=== PATIENT | female | born 1940 | race Caucasian/White ===

== ENCOUNTER 2016-10-28 22:57 | Inpatient (IN) | payer OTHER, MEDICARE ==
[~2016-10-28] VITALS: Ht 149.9 cm; Wt 59.9 kg
[~2016-10-28 22:57] MED LIST: ALDACTONE25 MG PO; AMARYL4 MG PO; ASPIRIN EC325 M1 PO; Aldactone PO; Aspirin PO; BUPROPION XL300 MG PO; Bactrim,Septra DS 80 PO; JANUVIA; LIDODERM 5% P1 PATCH TD; MICARDIS HCT PO; MICARDIS HCT1 TABLE2 PO; NORVASC10 MG PO; PRILOSEC OTC20 M1 PO; PRILOSEC20.6 MG PO; SIMVASTATIN40 M1 PO; Tylenol Arthritis Ex PO; Wellbutrin XL PO; Zocor PO; [UNRECOGNIZED DRUG - OTHER] TP
[2016-10-29 00:12] LABS: EOSINOPHIL (%) 0.6 % (0-5); EOSINOPHIL COUNT 0.1 K/uL (0-0.3); HEMATOCRIT 33.5 % (36.0-46.0); IMMATURE GRANULOCYTE (%) 0.4 % (0.0-0.7); IMMATURE GRANULOCYTE COUNT 0.1 K/uL; INSTRUMENT ABS NEUTROPHIL CT 13.2 K/uL; LYMPHOCYTE COUNT 1.5 K/uL (1.0-2.8); MCH 30.3 PG (29.0-34.0); MCHC 35.5 G/DL (30.0-36.0); MCV 85.2 FL (83-99); MEAN PLAT.VOLUME 9.2 uM^3 (9.5-12.4); MONOCYTE (%) 8.8 % (3-12); MONOCYTE COUNT 1.4 K/uL (0-0.8); NEUTROPHIL COUNT 13.2 K/uL (1.8-6.4); PLATELET COUNT 340 K/uL (156-360); RBC DIS.WIDTH-CV 11.9 % (11.8-14.6); RBC DIS.WIDTH-SD 36.6 % (39-53); RED BLOOD COUNT 3.93 M/uL (3.80-5.20); WHITE BLOOD COUNT 16.3 K/uL (4.1-10.2)
[2016-10-29 00:28] LABS: CHLORIDE 83 mEq/L (99-109); SODIUM 125 mEq/L (136-147)
[2016-10-29 00:30] LABS: GLUCOSE 60 mg/dL (70-99)
[2016-10-29 00:31] LABS: ANION GAP 14 MEQ/L (2-14)
[2016-10-29 00:33] LABS: TROP-I INTERPRETATION NEGATIVE; TROPONIN-I < 0.01 ng/mL (0.0-0.30)
[2016-10-29 00:34] LABS: GFR ESTIMATE (CALCULATED) 46 mL/min/
[2016-10-29 00:35] LABS: UREA NITROGEN (BUN) 24 mg/dL (9-23)
[2016-10-29 00:51] LABS: POTASSIUM 2.2 mEq/L (3.7-5.4)
[2016-10-29 01:05] LABS: ADD MIUA? NO; BILIRUBIN NEGATIVE; BLOOD NEGATIVE; COLOR YELLOW ((YELLOW)); GLUCOSE (STRIP) NEGATIVE; KETONES NEGATIVE; LEUKOCYTES NEGATIVE; NITRITE NEGATIVE; PROTEIN (STRIP) NEGATIVE; UCUL ADDED? NO; UROBILINOGEN 0.2 MG/DL (0.2-1.0)
[2016-10-29 03:05] VITALS: BP 144/65
[2016-10-29] MEDS ORDERED: HYZAAR 100-21 TABLET PD (03:13)
[2016-10-29] MEDS ORDERED: BUPROPION XL300 MG PD (03:17)
[2016-10-29] MEDS ORDERED: ATORVASTATIN CA20 MG PO (03:18)
[2016-10-29] MEDS ORDERED: FEROSUL325 MG PO (03:20)
[2016-10-29] MEDS ORDERED: MIRALAX17 GM PO (03:22)
[2016-10-29 05:59] LABS: HEMATOCRIT 30.6 % (36.0-46.0); MCH 30.5 PG (29.0-34.0); MCHC 35.3 G/DL (30.0-36.0); MCV 86.4 FL (83-99); PLATELET COUNT 312 K/uL (156-360); RBC DIS.WIDTH-SD 38.7 % (39-53); RED BLOOD COUNT 3.54 M/uL (3.80-5.20); WHITE BLOOD COUNT 12.6 K/uL (4.1-10.2)
[2016-10-29 06:23] LABS: ALKALINE PHOSPHATASE 67 IU/L (3-129); ANION GAP 7 MEQ/L (2-14); CHLORIDE 89 MEQ/L (99-109); GFR ESTIMATE (CALCULATED) 57 mL/min/; SAMPLE HEMOLYSIS CHECK 0; SAMPLE ICTERIC CHECK 0; SAMPLE LIPEMIA CHECK 0; SODIUM 125 MEQ/L (136-147); TOTAL BILIRUBIN 0.4 MG/DL (0.0-1.0); UREA NITROGEN (BUN) 21 mg/dL (9-23)
[2016-10-29 06:37] LABS: GLUCOSE 140 mg/dL (70-99); POTASSIUM 3.1 MEQ/L (3.7-5.4)
[2016-10-29 07:12] VITALS: BP 151/67
[2016-10-29 07:29] LABS: POINT-OF-CARE METER ID UU14188625
[2016-10-29 11:14] VITALS: BP 134/66
[2016-10-29 12:24] LABS: POINT-OF-CARE METER ID UU14188625
[2016-10-29 15:06] VITALS: BP 156/70
[2016-10-29 16:23] LABS: CHLORIDE 91 mEq/L (99-109); POTASSIUM 3.1 mEq/L (3.7-5.4); SODIUM 129 mEq/L (136-147)
[2016-10-29 16:24] LABS: GLUCOSE 138 mg/dL (70-99)
[2016-10-29 16:26] LABS: ANION GAP 14 MEQ/L (2-14)
[2016-10-29 16:28] LABS: GFR ESTIMATE (CALCULATED) 42 mL/min/
[2016-10-29 16:29] LABS: UREA NITROGEN (BUN) 21 mg/dL (9-23)
[2016-10-29 16:43] LABS: POINT-OF-CARE METER ID UU14188625
[2016-10-30 00:06] VITALS: BP 150/71
[2016-10-30 01:11] LABS: CHLORIDE 97 mEq/L (99-109)
[2016-10-30 01:12] LABS: SODIUM 129 mEq/L (136-147)
[2016-10-30 01:13] LABS: GLUCOSE 110 mg/dL (70-99)
[2016-10-30 01:15] LABS: ANION GAP 9 MEQ/L (2-14); POTASSIUM 4.7 mEq/L (3.7-5.4)
[2016-10-30 01:17] LABS: GFR ESTIMATE (CALCULATED) 51 mL/min/
[2016-10-30 01:18] LABS: UREA NITROGEN (BUN) 24 mg/dL (9-23)
[2016-10-30 03:37] VITALS: BP 157/67
[2016-10-30 06:15] LABS: BASOPHIL COUNT 0.1 K/uL (0-0.1); EOSINOPHIL (%) 1.2 % (0-5); EOSINOPHIL COUNT 0.2 K/uL (0-0.3); HEMATOCRIT 29.3 % (36.0-46.0); IMMATURE GRANULOCYTE (%) 0.4 % (0.0-0.7); IMMATURE GRANULOCYTE COUNT 0.1 K/uL; INSTRUMENT ABS NEUTROPHIL CT 10.4 K/uL; LYMPHOCYTE COUNT 2.1 K/uL (1.0-2.8); MCH 31.7 PG (29.0-34.0); MCHC 35.8 G/DL (30.0-36.0); MCV 88.5 FL (83-99); MEAN PLAT.VOLUME 9.2 uM^3 (9.5-12.4); MONOCYTE (%) 11.9 % (3-12); MONOCYTE COUNT 1.7 K/uL (0-0.8); NEUTROPHIL (%) 71.9 % (45-76); NEUTROPHIL COUNT 10.4 K/uL (1.8-6.4); PLATELET COUNT 301 K/uL (156-360); RBC DIS.WIDTH-CV 12.6 % (11.8-14.6); RBC DIS.WIDTH-SD 40.9 % (39-53); RED BLOOD COUNT 3.31 M/uL (3.80-5.20); WHITE BLOOD COUNT 14.4 K/uL (4.1-10.2)
[2016-10-30 07:10] LABS: ANION GAP 9 MEQ/L (2-14); CHLORIDE 96 MEQ/L (99-109); GFR ESTIMATE (CALCULATED) 57 mL/min/; GLUCOSE 102 mg/dL (70-99); MAGNESIUM 1.2 mg/dl (1.3-2.7); SAMPLE HEMOLYSIS CHECK 0; SAMPLE ICTERIC CHECK 0; SAMPLE LIPEMIA CHECK 0; SODIUM 131 MEQ/L (136-147); UREA NITROGEN (BUN) 20 mg/dL (9-23); URIC ACID 3.7 mg/dL (3.1-9.2)
[2016-10-30 07:15] LABS: POTASSIUM 3.6 MEQ/L (3.7-5.4)
[2016-10-30 08:14] VITALS: BP 158/71
[2016-10-30 11:39] VITALS: BP 142/57
[2016-10-30] MEDS ORDERED: COLACE100 MG PO (11:40)
== END 2016-10-30 13:48 | disposition home health service (06) | DRG 641 ==
LOC: EME 22:57 → EDOF 10-29 02:01 → 5SOUTH 10-29 02:01 → ENRESERV 10-29 02:03 → 5SOUTH 10-29 02:43 → ENPENDDIS 10-30 → 5SOUTH 10-30 13:48
PROVIDERS: Emergency Medicine; Internal Medicine; Internal Medicine Nephrology
DX: E87.1 Hypo-osmolality and hyponatremia (principal); T50.2X5A Adverse effect of carbonic-anhydrase inhibitors, benzothiadiazides and other diuretics, initial encounter; N17.9 Acute kidney failure, unspecified; E86.0 Dehydration; E87.6 Hypokalemia; E11.649 Type 2 diabetes mellitus with hypoglycemia without coma; E11.22 Type 2 diabetes mellitus with diabetic chronic kidney disease; I12.9 Hypertensive chronic kidney disease with stage 1 through stage 4 chronic kidney disease, or unspecified chronic kidney disease; N18.3 Chronic kidney disease, stage 3 (moderate); E78.00 Pure hypercholesterolemia, unspecified; E78.5 Hyperlipidemia, unspecified; K21.9 Gastro-esophageal reflux disease without esophagitis; G43.909 Migraine, unspecified, not intractable, without status migrainosus; F32.9 Major depressive disorder, single episode, unspecified; I25.10 Atherosclerotic heart disease of native coronary artery without angina pectoris; K62.3 Rectal prolapse; E66.9 Obesity, unspecified; Z79.82 Long term (current) use of aspirin; I25.2 Old myocardial infarction; Z85.42 Personal history of malignant neoplasm of other parts of uterus; Z95.5 Presence of coronary angioplasty implant and graft; Z91.81 History of falling; Z88.0 Allergy status to penicillin; Z68.26 Body mass index [BMI] 26.0-26.9, adult
CPT/HCPCS: 71010; 76770; 80048; 80048 91; 80053; 81003; 82533 91; 82948; 83735; 83935; 84100; 84300; 84443; 84484; 84550; 85025; 85027; 87086; 93005; 99281; 99285; J1644; J3475; J3480; J7030

== ENCOUNTER 2016-11-06 15:50 | Inpatient (IN) | payer OTHER, MEDICARE ==
[~2016-11-06] VITALS: Ht 149.9 cm; Wt 72.5 kg
[~2016-11-06 15:50] MED LIST changes: +ASPIR-LOW81 MG PO; +ATORVASTATIN CA20 MG PO; -Aspirin PO; +BUPROPION XL150 MG PO; +COLACE100 MG PO; +FEROSUL325 MG PO; +HYZAAR 100-21 TABLET PD; +MIRALAX17 GM PO; +TYLENOL ARTHRI650 MG PO; -Tylenol Arthritis Ex PO
[2016-11-06 16:30] LABS: POINT-OF-CARE METER ID UU13113747
[2016-11-06 16:48] LABS: HEMATOCRIT 26.3 % (36.0-46.0); MCH 30.5 PG (29.0-34.0); MCHC 36.1 G/DL (30.0-36.0); MCV 84.6 FL (83-99); RED BLOOD COUNT 3.11 M/uL (3.80-5.20)
[2016-11-06 16:52] LABS: WHITE BLOOD COUNT 32.1 K/uL (4.1-10.2)
[2016-11-06 16:55] LABS: POINT-OF-CARE METER ID UU13113747
[2016-11-06 16:55] LABS: CHLORIDE 91 mEq/L (99-109); SODIUM 128 mEq/L (136-147)
[2016-11-06 16:57] LABS: GLUCOSE 216 mg/dL (70-99)
[2016-11-06 16:59] LABS: ANION GAP 12 MEQ/L (2-14)
[2016-11-06 17:01] LABS: GFR ESTIMATE (CALCULATED) 31 mL/min/
[2016-11-06 17:02] LABS: UREA NITROGEN (BUN) 62 mg/dL (9-23)
[2016-11-06 18:00] LABS: POINT-OF-CARE METER ID UU13113747
[2016-11-06 18:00] LABS: MEAN PLAT.VOLUME 10.2 uM^3 (9.5-12.4); PLAT.SUFFICIENCY ADEQUATE; PLATELET COUNT 201 K/uL (156-360)
[2016-11-06 18:06] LABS: ADD MIUA? YES; BILIRUBIN NEGATIVE; BLOOD SMALL; COLOR YELLOW ((YELLOW)); GLUCOSE (STRIP) NEGATIVE; KETONES NEGATIVE; LEUKOCYTES LARGE; NITRITE NEGATIVE; PROTEIN (STRIP) 100; SPECIFIC GRAVITY 1.011 (1.000-1.030); UROBILINOGEN 0.2 MG/DL (0.2-1.0)
[2016-11-06 18:12] LABS: BACTERIA 3+ /HPF; EPITHELIAL CELLS RARE /HPF; MUCUS NONE SEEN /LPF; UCUL ADDED? YES; UNCLASSIFIED CRYSTALS 3+ /HPF; WHITE BLOOD CELLS TNTC /HPF (0-5); WHITE BLOOD CELLS CLUMP MANY /HPF (0-5)
[2016-11-06] MEDS ORDERED: ATIVAN0.5 MG PO (18:38)
[2016-11-06 18:54] LABS: POINT-OF-CARE METER ID UU13113747
[2016-11-06 20:01] LABS: POINT-OF-CARE METER ID UU13113747
[2016-11-06 21:21] LABS: POINT-OF-CARE METER ID UU13113747
[2016-11-06 21:50] VITALS: BP 147/64
[2016-11-06 22:54] LABS: POINT-OF-CARE METER ID UU13113698
[2016-11-06 23:55] VITALS: BP 139/63
[2016-11-07 00:54] LABS: POINT-OF-CARE METER ID UU13113698
[2016-11-07 04:30] VITALS: BP 144/67
[2016-11-07 05:03] LABS: POINT-OF-CARE METER ID UU13113803
[2016-11-07 05:35] LABS: EOSINOPHIL (%) 0 % (0-5); HEMATOCRIT 23.2 % (36.0-46.0); IMMATURE GRANULOCYTE (%) 3.9 % (0.0-0.7); IMMATURE GRANULOCYTE COUNT 1.1 K/uL; LYMPHOCYTE COUNT 0.8 K/uL (1.0-2.8); MCH 31.5 PG (29.0-34.0); MCHC 36.6 G/DL (30.0-36.0); MCV 85.9 FL (83-99); MEAN PLAT.VOLUME 10.5 uM^3 (9.5-12.4); MONOCYTE (%) 5.4 % (3-12); MONOCYTE COUNT 1.5 K/uL (0-0.8); PLATELET COUNT 184 K/uL (156-360); RBC DIS.WIDTH-CV 13.5 % (11.8-14.6); RBC DIS.WIDTH-SD 42.1 % (39-53); WHITE BLOOD COUNT 28.4 K/uL (4.1-10.2)
[2016-11-07 05:50] LABS: POINT-OF-CARE METER ID UU13113803
[2016-11-07 05:59] LABS: ANION GAP 9 MEQ/L (2-14); CHLORIDE 97 MEQ/L (99-109); GFR ESTIMATE (CALCULATED) 36 mL/min/; POTASSIUM 3.2 MEQ/L (3.7-5.4); SAMPLE HEMOLYSIS CHECK 0; SAMPLE ICTERIC CHECK 0; SAMPLE LIPEMIA CHECK 0; SODIUM 131 MEQ/L (136-147); UREA NITROGEN (BUN) 56 mg/dL (9-23)
[2016-11-07 06:06] LABS: GLUCOSE 41 mg/dL (70-99)
[2016-11-07 08:08] LABS: POINT-OF-CARE METER ID UU13113803; POINT-OF-CARE USER ID ENVKC36
[2016-11-07 08:15] VITALS: BP 151/67
[2016-11-07 11:30] VITALS: BP 124/62
[2016-11-07 11:38] LABS: POINT-OF-CARE METER ID UU13113698; POINT-OF-CARE USER ID ENVKC36
[2016-11-07 15:22] VITALS: BP 117/55
[2016-11-07 16:39] LABS: POINT-OF-CARE USER ID ENVKC36
[2016-11-07 19:25] VITALS: BP 139/63
[2016-11-07 20:15] LABS: POINT-OF-CARE METER ID UU13113781
[2016-11-07 23:05] VITALS: BP 153/68
[2016-11-08 00:45] LABS: POINT-OF-CARE METER ID UU13113698
[2016-11-08 03:08] VITALS: BP 141/64
[2016-11-08 05:47] LABS: BASOPHIL COUNT 0.1 K/uL (0-0.1); EOSINOPHIL (%) 0.1 % (0-5); IMMATURE GRANULOCYTE (%) 4.3 % (0.0-0.7); IMMATURE GRANULOCYTE COUNT 1.7 K/uL; INSTRUMENT ABS NEUTROPHIL CT 34.3 K/uL; LYMPHOCYTE COUNT 0.6 K/uL (1.0-2.8); MEAN PLAT.VOLUME 10.6 uM^3 (9.5-12.4); MONOCYTE (%) 5.1 % (3-12); NEUTROPHIL (%) 88.7 % (45-76); NEUTROPHIL COUNT 34.3 K/uL (1.8-6.4); PLATELET COUNT 220 K/uL (156-360)
[2016-11-08 06:37] LABS: MCH 31.4 PG (29.0-34.0); MCHC 36.1 G/DL (30.0-36.0); MCV 87.1 FL (83-99); RBC DIS.WIDTH-CV 14.1 % (11.8-14.6); RBC DIS.WIDTH-SD 44.2 % (39-53); RED BLOOD COUNT 2.64 M/uL (3.80-5.20)
[2016-11-08 06:45] LABS: ANION GAP 7 MEQ/L (2-14); CHLORIDE 99 MEQ/L (99-109); GFR ESTIMATE (CALCULATED) 31 mL/min/; SAMPLE HEMOLYSIS CHECK 0; SAMPLE ICTERIC CHECK 0; SAMPLE LIPEMIA CHECK 1; SODIUM 128 MEQ/L (136-147); UREA NITROGEN (BUN) 55 mg/dL (9-23)
[2016-11-08 06:53] LABS: GLUCOSE 177 mg/dL (70-99); POTASSIUM 4.3 MEQ/L (3.7-5.4)
[2016-11-08 07:49] LABS: WHITE BLOOD COUNT 38.6 K/uL (4.1-10.2)
[2016-11-08 19:12] VITALS: BP 167/70
[2016-11-08 23:22] VITALS: BP 156/60
[2016-11-09 03:17] VITALS: BP 159/70
[2016-11-09 06:27] LABS: BASOPHIL COUNT 0.1 K/uL (0-0.1); EOSINOPHIL (%) 0.2 % (0-5); EOSINOPHIL COUNT 0.1 K/uL (0-0.3); HEMATOCRIT 23.2 % (36.0-46.0); IMMATURE GRANULOCYTE (%) 3.7 % (0.0-0.7); IMMATURE GRANULOCYTE COUNT 1.3 K/uL; INSTRUMENT ABS NEUTROPHIL CT 30.7 K/uL; LYMPHOCYTE COUNT 1.1 K/uL (1.0-2.8); MCH 30.6 PG (29.0-34.0); MCHC 34.9 G/DL (30.0-36.0); MCV 87.5 FL (83-99); MEAN PLAT.VOLUME 10.4 uM^3 (9.5-12.4); MONOCYTE COUNT 1.4 K/uL (0-0.8); NEUTROPHIL (%) 88.7 % (45-76); NEUTROPHIL COUNT 30.7 K/uL (1.8-6.4); PLATELET COUNT 286 K/uL (156-360); RBC DIS.WIDTH-CV 14.3 % (11.8-14.6); RBC DIS.WIDTH-SD 45.4 % (39-53); RED BLOOD COUNT 2.65 M/uL (3.80-5.20)
[2016-11-09 06:39] LABS: ALKALINE PHOSPHATASE 116 IU/L (3-129); ANION GAP 9 MEQ/L (2-14); CHLORIDE 101 MEQ/L (99-109); DIRECT BILIRUBIN 0.2 mg/dL (0.0-0.3); GFR ESTIMATE (CALCULATED) 33 mL/min/; GLUCOSE 137 mg/dL (70-99); POTASSIUM 3.9 MEQ/L (3.7-5.4); SAMPLE HEMOLYSIS CHECK 0; SAMPLE ICTERIC CHECK 0; SAMPLE LIPEMIA CHECK 0; SODIUM 133 MEQ/L (136-147); TOTAL BILIRUBIN 0.6 MG/DL (0.0-1.0); UREA NITROGEN (BUN) 49 mg/dL (9-23); URIC ACID 4.4 mg/dL (3.1-9.2)
[2016-11-09 06:44] LABS: LACTATE DEHYDROGENASE 211 IU/L (20-246)
[2016-11-09 06:57] LABS: IRON 32 MCG/DL (35-150)
[2016-11-09 07:07] LABS: WHITE BLOOD COUNT 34.7 K/uL (4.1-10.2)
[2016-11-09 07:55] VITALS: BP 142/63
[2016-11-09 08:13] LABS: POINT-OF-CARE METER ID UU13113781
[2016-11-09 08:49] LABS: FERRITIN 882 NG/ML (10-291)
[2016-11-09 11:30] VITALS: BP 158/67
[2016-11-09 12:07] LABS: POINT-OF-CARE METER ID UU13113781
[2016-11-09 15:50] VITALS: BP 142/65
[2016-11-09 16:41] LABS: POINT-OF-CARE METER ID UU13113781
[2016-11-09 17:53] LABS: UR CREATININE CONCENTRATION 43.4 MG/DL
[2016-11-09 20:00] VITALS: BP 140/63
[2016-11-09 23:56] VITALS: BP 148/68
[2016-11-10] VITALS (12 sets, daily range): BP systolic 137–172; BP diastolic 64–76
[2016-11-10 05:25] LABS: BASOPHIL COUNT 0.1 K/uL (0-0.1); EOSINOPHIL (%) 0.2 % (0-5); EOSINOPHIL COUNT 0.1 K/uL (0-0.3); IMMATURE GRANULOCYTE COUNT 1.1 K/uL; INSTRUMENT ABS NEUTROPHIL CT 31.6 K/uL; LYMPHOCYTE COUNT 0.8 K/uL (1.0-2.8); MEAN PLAT.VOLUME 10.5 uM^3 (9.5-12.4); MONOCYTE (%) 5.3 % (3-12); MONOCYTE COUNT 1.9 K/uL (0-0.8); NEUTROPHIL (%) 89.2 % (45-76); NEUTROPHIL COUNT 31.6 K/uL (1.8-6.4); PLATELET COUNT 325 K/uL (156-360)
[2016-11-10 05:51] LABS: ANION GAP 11 MEQ/L (2-14); CHLORIDE 105 MEQ/L (99-109); GFR ESTIMATE (CALCULATED) 33 mL/min/; GLUCOSE 150 mg/dL (70-99); POTASSIUM 3.9 MEQ/L (3.7-5.4); SAMPLE HEMOLYSIS CHECK 0; SAMPLE ICTERIC CHECK 0; SAMPLE LIPEMIA CHECK 0; SODIUM 135 MEQ/L (136-147); UREA NITROGEN (BUN) 47 mg/dL (9-23)
[2016-11-10 06:32] LABS: HEMATOCRIT 20.9 % (36.0-46.0); MCH 31.8 PG (29.0-34.0); MCHC 36.4 G/DL (30.0-36.0); MCV 87.4 FL (83-99); RBC DIS.WIDTH-CV 14.4 % (11.8-14.6); RBC DIS.WIDTH-SD 45.6 % (39-53); RED BLOOD COUNT 2.39 M/uL (3.80-5.20)
[2016-11-10 06:39] LABS: WHITE BLOOD COUNT 34.5 K/uL (4.1-10.2)
[2016-11-10 11:23] LABS: POINT-OF-CARE METER ID UU13113698
[2016-11-10 11:31] LABS: POINT-OF-CARE METER ID UU13113778
[2016-11-11 00:27] VITALS: BP 150/70
[2016-11-11 04:00] VITALS: BP 160/90
[2016-11-11 07:09] VITALS: BP 135/65
[2016-11-11 07:36] LABS: POINT-OF-CARE METER ID UU13113781
[2016-11-11 08:07] LABS: EOSINOPHIL (%) 0.4 % (0-5); EOSINOPHIL COUNT 0.1 K/uL (0-0.3); HEMATOCRIT 29.8 % (36.0-46.0); IMMATURE GRANULOCYTE (%) 2.4 % (0.0-0.7); IMMATURE GRANULOCYTE COUNT 0.7 K/uL; INSTRUMENT ABS NEUTROPHIL CT 23.9 K/uL; MCH 30.3 PG (29.0-34.0); MCHC 35.9 G/DL (30.0-36.0); MCV 84.4 FL (83-99); MEAN PLAT.VOLUME 10.1 uM^3 (9.5-12.4); MONOCYTE (%) 6.5 % (3-12); MONOCYTE COUNT 1.8 K/uL (0-0.8); NEUTROPHIL (%) 86.9 % (45-76); NEUTROPHIL COUNT 23.9 K/uL (1.8-6.4); PLATELET COUNT 311 K/uL (156-360); RBC DIS.WIDTH-CV 15.1 % (11.8-14.6); RBC DIS.WIDTH-SD 45.7 % (39-53); WHITE BLOOD COUNT 27.5 K/uL (4.1-10.2)
[2016-11-11 08:08] LABS: RED BLOOD COUNT 3.53 M/uL (3.80-5.20)
[2016-11-11 09:11] LABS: ANION GAP 9 MEQ/L (2-14); CHLORIDE 108 MEQ/L (99-109); GFR ESTIMATE (CALCULATED) 33 mL/min/; GLUCOSE 158 mg/dL (70-99); POTASSIUM 3.8 MEQ/L (3.7-5.4); SAMPLE HEMOLYSIS CHECK 0; SAMPLE ICTERIC CHECK 0; SAMPLE LIPEMIA CHECK 0; SODIUM 138 MEQ/L (136-147); UREA NITROGEN (BUN) 41 mg/dL (9-23)
[2016-11-11 11:30] VITALS: BP 177/74
[2016-11-11 11:37] LABS: POINT-OF-CARE METER ID UU13113781
[2016-11-11 15:37] VITALS: BP 147/68
[2016-11-11 16:27] LABS: POINT-OF-CARE METER ID UU13113781
[2016-11-11 19:20] VITALS: BP 147/68
[2016-11-12 00:10] VITALS: BP 150/70
[2016-11-12 03:45] VITALS: BP 156/71
[2016-11-12 05:46] LABS: BASOPHIL COUNT 0.1 K/uL (0-0.1); EOSINOPHIL (%) 0.4 % (0-5); EOSINOPHIL COUNT 0.1 K/uL (0-0.3); HEMATOCRIT 29.2 % (36.0-46.0); IMMATURE GRANULOCYTE (%) 2.2 % (0.0-0.7); IMMATURE GRANULOCYTE COUNT 0.6 K/uL; INSTRUMENT ABS NEUTROPHIL CT 23.1 K/uL; LYMPHOCYTE COUNT 0.9 K/uL (1.0-2.8); MCH 31.2 PG (29.0-34.0); MCHC 36.3 G/DL (30.0-36.0); MCV 85.9 FL (83-99); MEAN PLAT.VOLUME 10.1 uM^3 (9.5-12.4); MONOCYTE (%) 6.5 % (3-12); MONOCYTE COUNT 1.7 K/uL (0-0.8); NEUTROPHIL (%) 87.2 % (45-76); NEUTROPHIL COUNT 23.1 K/uL (1.8-6.4); PLATELET COUNT 363 K/uL (156-360); RBC DIS.WIDTH-CV 15.6 % (11.8-14.6); RBC DIS.WIDTH-SD 47.8 % (39-53); WHITE BLOOD COUNT 26.5 K/uL (4.1-10.2)
[2016-11-12 06:10] LABS: ANION GAP 10 MEQ/L (2-14); CHLORIDE 108 MEQ/L (99-109); GFR ESTIMATE (CALCULATED) 33 mL/min/; GLUCOSE 126 mg/dL (70-99); POTASSIUM 3.4 MEQ/L (3.7-5.4); SAMPLE HEMOLYSIS CHECK 0; SAMPLE ICTERIC CHECK 0; SAMPLE LIPEMIA CHECK 0; SODIUM 139 MEQ/L (136-147); UREA NITROGEN (BUN) 37 mg/dL (9-23)
[2016-11-12 07:56] VITALS: BP 164/73
[2016-11-12 11:29] LABS: POINT-OF-CARE METER ID UU13113803
[2016-11-12 16:02] VITALS: BP 145/67
[2016-11-12 16:45] LABS: POINT-OF-CARE METER ID UU13113803
[2016-11-12 19:20] VITALS: BP 162/70
[2016-11-13] VITALS (7 sets, daily range): BP systolic 135–168; BP diastolic 63–78
[2016-11-13 05:40] LABS: EOSINOPHIL (%) 0.5 % (0-5); EOSINOPHIL COUNT 0.1 K/uL (0-0.3); HEMATOCRIT 31.3 % (36.0-46.0); IMMATURE GRANULOCYTE (%) 2.3 % (0.0-0.7); IMMATURE GRANULOCYTE COUNT 0.5 K/uL; MCH 30.6 PG (29.0-34.0); MCHC 35.5 G/DL (30.0-36.0); MCV 86.2 FL (83-99); MEAN PLAT.VOLUME 9.8 uM^3 (9.5-12.4); MONOCYTE COUNT 1.4 K/uL (0-0.8); NEUTROPHIL (%) 84.8 % (45-76); PLATELET COUNT 436 K/uL (156-360); RBC DIS.WIDTH-CV 16.2 % (11.8-14.6); RBC DIS.WIDTH-SD 48.9 % (39-53); RED BLOOD COUNT 3.63 M/uL (3.80-5.20)
[2016-11-13 05:47] LABS: ANION GAP 11 MEQ/L (2-14); CHLORIDE 108 MEQ/L (99-109); GFR ESTIMATE (CALCULATED) 33 mL/min/; GLUCOSE 128 mg/dL (70-99); POTASSIUM 3.8 MEQ/L (3.7-5.4); SAMPLE HEMOLYSIS CHECK 0; SAMPLE ICTERIC CHECK 0; SAMPLE LIPEMIA CHECK 0; SODIUM 139 MEQ/L (136-147); UREA NITROGEN (BUN) 32 mg/dL (9-23)
[2016-11-13 07:58] LABS: POINT-OF-CARE METER ID UU13113698
[2016-11-13 08:21] LABS: POINT-OF-CARE USER ID ENVKC36
[2016-11-13 11:10] LABS: POINT-OF-CARE METER ID UU13113698
[2016-11-13 21:07] LABS: POINT-OF-CARE METER ID UU13113698
[2016-11-14 04:00] VITALS: BP 165/75
[2016-11-14 04:55] LABS: EOSINOPHIL (%) 0.4 % (0-5); EOSINOPHIL COUNT 0.1 K/uL (0-0.3); HEMATOCRIT 30.6 % (36.0-46.0); IMMATURE GRANULOCYTE (%) 2.4 % (0.0-0.7); IMMATURE GRANULOCYTE COUNT 0.4 K/uL; INSTRUMENT ABS NEUTROPHIL CT 13.2 K/uL; LYMPHOCYTE COUNT 1.2 K/uL (1.0-2.8); MCH 29.9 PG (29.0-34.0); MCHC 34.6 G/DL (30.0-36.0); MCV 86.4 FL (83-99); MEAN PLAT.VOLUME 9.7 uM^3 (9.5-12.4); MONOCYTE (%) 6.9 % (3-12); MONOCYTE COUNT 1.1 K/uL (0-0.8); NEUTROPHIL (%) 82.4 % (45-76); NEUTROPHIL COUNT 13.2 K/uL (1.8-6.4); PLATELET COUNT 445 K/uL (156-360); RBC DIS.WIDTH-SD 47.4 % (39-53); RED BLOOD COUNT 3.54 M/uL (3.80-5.20)
[2016-11-14 04:59] LABS: CHLORIDE 114 mEq/L (99-109); POTASSIUM 3.4 mEq/L (3.7-5.4); SODIUM 143 mEq/L (136-147)
[2016-11-14 05:00] LABS: MAGNESIUM 1.3 mg/dL (1.3-2.7)
[2016-11-14 05:01] LABS: GLUCOSE 162 mg/dL (70-99)
[2016-11-14 05:02] LABS: ANION GAP 8 MEQ/L (2-14)
[2016-11-14 05:05] LABS: GFR ESTIMATE (CALCULATED) 33 mL/min/
[2016-11-14 05:06] LABS: UREA NITROGEN (BUN) 28 mg/dL (9-23)
[2016-11-14 07:16] VITALS: BP 185/88
[2016-11-14 08:01] LABS: POINT-OF-CARE METER ID UU13113803; POINT-OF-CARE USER ID NUTSLF44
[2016-11-14 11:15] VITALS: BP 140/67
[2016-11-14] MEDS ORDERED: POLYETHYLENE GL17 GM PO (11:45)
[2016-11-14] MEDS ORDERED: PANTOPRAZOLE SO40 MG PO (11:45)
[2016-11-14] MEDS ORDERED: CEFTRIAXONE2 G1 IM (11:48)
[2016-11-14] MEDS ORDERED: FLAGYL500 MG PO (11:48)
[2016-11-14] MEDS ORDERED: NOVOLOG PE100 UNITS/ SC (11:49)
[2016-11-14] MEDS ORDERED: CARVEDILOL12.5 MG PO (11:49)
[2016-11-14] MEDS ORDERED: LORAZEPAM0.5 MG PO (11:50)
[2016-11-14] MEDS ORDERED: ONDANSETRON4 MG/2 ML IV (11:50)
[2016-11-14 12:19] LABS: POINT-OF-CARE METER ID UU13113803; POINT-OF-CARE USER ID NUTSLF44
== END 2016-11-14 15:16 | DRG 871 ==
LOC: EME 15:50 → EDOF 20:13 → 4EAST 20:13 → ENRESERV 20:27 → 4EAST 21:43
PROVIDERS: Emergency Medicine; Hospitalist; Internal Medicine; Internal Medicine Hematology & Oncology; Internal Medicine Nephrology
PROC: 30233N1 Transfusion of Nonautologous Red Blood Cells into Peripheral Vein, Percutaneous Approach (ICD-10-PCS; principal; 2016-11-10)
DX: A41.51 Sepsis due to Escherichia coli [E. coli] (principal); N17.0 Acute kidney failure with tubular necrosis; E87.2 Acidosis; G92 Toxic encephalopathy; R13.10 Dysphagia, unspecified; E11.649 Type 2 diabetes mellitus with hypoglycemia without coma; N12 Tubulo-interstitial nephritis, not specified as acute or chronic; E87.1 Hypo-osmolality and hyponatremia; E86.0 Dehydration; K59.00 Constipation, unspecified; K62.3 Rectal prolapse; E87.6 Hypokalemia; I11.9 Hypertensive heart disease without heart failure; E78.00 Pure hypercholesterolemia, unspecified; R63.4 Abnormal weight loss; R63.0 Anorexia; D50.0 Iron deficiency anemia secondary to blood loss (chronic); Z85.42 Personal history of malignant neoplasm of other parts of uterus; I25.10 Atherosclerotic heart disease of native coronary artery without angina pectoris; Z95.5 Presence of coronary angioplasty implant and graft; Z79.899 Other long term (current) drug therapy; Z79.84 Long term (current) use of oral hypoglycemic drugs; Z68.32 Body mass index [BMI] 32.0-32.9, adult; I51.7 Cardiomegaly; K44.9 Diaphragmatic hernia without obstruction or gangrene; Z90.49 Acquired absence of other specified parts of digestive tract; R33.8 Other retention of urine; I25.2 Old myocardial infarction; Z90.710 Acquired absence of both cervix and uterus; K62.5 Hemorrhage of anus and rectum; K21.0 Gastro-esophageal reflux disease with esophagitis; R26.2 Difficulty in walking, not elsewhere classified; E78.5 Hyperlipidemia, unspecified; F41.9 Anxiety disorder, unspecified; Z92.3 Personal history of irradiation; E87.8 Other disorders of electrolyte and fluid balance, not elsewhere classified; R60.9 Edema, unspecified
CPT/HCPCS: 36415; 71010; 74000; 74176; 76705; 80048; 80048 91; 80069; 80076; 81003; 82043; 82570; 82607; 82728; 82746; 82948; 83036; 83540; 83605; 83615; 83735; 83935; 84156; 84300; 84466; 84550; 85025; 85027; 85651; 86140; 86870; 86900; 86901; 86905; 86920; 87040; 87077; 87086; 87186; 87801; 93005; 97530 GO; 99281; 99285; J0696; J0881; J1644; J1815; J1940; J1956; J2405; J3480; J7030; J7042; J7050; P9016; S0028; S0030

== ENCOUNTER 2016-11-17 06:18 | Inpatient (IN) | payer OTHER, MEDICARE ==
[2016-11-17] VITALS (9 sets, daily range): BP systolic 118–184; BP diastolic 61–83
[~2016-11-17] VITALS: Ht 154.9 cm; Wt 74.5 kg
[~2016-11-17 06:18] MED LIST changes: +ATIVAN0.5 MG PO; +CARVEDILOL12.5 MG PO; +CEFTRIAXONE2 G1 IM; +FLAGYL500 MG PO; +LORAZEPAM0.5 MG PO; +NOVOLOG PE100 UNITS/ SC; +ONDANSETRON4 MG/2 ML IV; +PANTOPRAZOLE SO40 MG PO; +POLYETHYLENE GL17 GM PO
[2016-11-17 07:30] LABS: HEMATOCRIT 21.5 % (36.0-46.0); MCH 30.6 PG (29.0-34.0); MCHC 33.5 G/DL (30.0-36.0); MCV 91.5 FL (83-99); MEAN PLAT.VOLUME 9.8 uM^3 (9.5-12.4); PLATELET COUNT 399 K/uL (156-360); RBC DIS.WIDTH-CV 17.5 % (11.8-14.6); RBC DIS.WIDTH-SD 54.7 % (39-53); RED BLOOD COUNT 2.35 M/uL (3.80-5.20); WHITE BLOOD COUNT 19.2 K/uL (4.1-10.2)
[2016-11-17 07:34] LABS: INTER. NORMALIZED RATIO 1.2; PROTHROMBIN TIME 13.3 SEC (10.2-12.9)
[2016-11-17 07:36] LABS: PTT 28.4 SEC (25-37)
[2016-11-17 07:46] LABS: CHLORIDE 108 mEq/L (99-109); SODIUM 137 mEq/L (136-147)
[2016-11-17 07:48] LABS: GLUCOSE 187 mg/dL (70-99)
[2016-11-17 07:50] LABS: ANION GAP 6 MEQ/L (2-14); TOTAL BILIRUBIN 0.2 mg/dL (0.0-1.0)
[2016-11-17 07:52] LABS: ALKALINE PHOSPHATASE 67 IU/L (3-129); GFR ESTIMATE (CALCULATED) 26 mL/min/
[2016-11-17 07:53] LABS: UREA NITROGEN (BUN) 51 mg/dL (9-23)
[2016-11-17] MEDS ORDERED: OMEPRAZOLE20 MG PO (10:46)
[2016-11-17] MEDS ORDERED: METRONIDAZOLE500 MG PO (10:49)
[2016-11-17] MEDS ORDERED: NOVOLOG PE100 UNITS/ SC (10:50)
[2016-11-17] MEDS ORDERED: DULCOLAX10 MG PR (10:51)
[2016-11-17] MEDS ORDERED: MIRALAX17 GM PO (10:52)
[2016-11-17] MEDS ORDERED: ONDANSETRON HCL4 MG PO (10:52)
[2016-11-17 16:11] LABS: POINT-OF-CARE METER ID UU13113725
[2016-11-17 16:55] LABS: ADD MIUA? YES; BILIRUBIN NEGATIVE; BLOOD MODERATE; COLOR YELLOW ((YELLOW)); GLUCOSE (STRIP) NEGATIVE; KETONES NEGATIVE; LEUKOCYTES MODERATE; NITRITE NEGATIVE; PROTEIN (STRIP) NEGATIVE; UROBILINOGEN 0.2 MG/DL (0.2-1.0)
[2016-11-17 17:05] LABS: BACTERIA NONE SEEN /HPF; EPITHELIAL CELLS RARE /HPF; MUCUS NONE SEEN /LPF; RED BLOOD CELLS 0-5 /HPF (0-5); WHITE BLOOD CELLS 20-30 /HPF (0-5)
[2016-11-17 17:22] LABS: HEMATOCRIT 32.4 % (36.0-46.0)
[2016-11-17 23:31] LABS: HEMATOCRIT 29.1 % (36.0-46.0); MCV 90.1 FL (83-99)
[2016-11-18 00:37] VITALS: BP 148/71
[2016-11-18 06:40] VITALS: BP 145/64
[2016-11-18 06:59] LABS: ALKALINE PHOSPHATASE 50 IU/L (3-129); ANION GAP 10 MEQ/L (2-14); CHLORIDE 114 MEQ/L (99-109); GFR ESTIMATE (CALCULATED) 27 mL/min/; GLUCOSE 123 mg/dL (70-99); POTASSIUM 3.9 MEQ/L (3.7-5.4); SAMPLE HEMOLYSIS CHECK 0; SAMPLE ICTERIC CHECK 0; SAMPLE LIPEMIA CHECK 0; SODIUM 143 MEQ/L (136-147); TOTAL BILIRUBIN 0.2 MG/DL (0.0-1.0); UREA NITROGEN (BUN) 43 mg/dL (9-23)
[2016-11-18 07:51] LABS: HEMATOCRIT 25.8 % (36.0-46.0); MCH 31.4 PG (29.0-34.0); MCHC 34.1 G/DL (30.0-36.0); MCV 92.1 FL (83-99); MEAN PLAT.VOLUME 10.2 uM^3 (9.5-12.4); PLATELET COUNT 301 K/uL (156-360); RBC DIS.WIDTH-SD 52.2 % (39-53); WHITE BLOOD COUNT 12.9 K/uL (4.1-10.2)
[2016-11-18 10:49] VITALS: BP 156/70
[2016-11-18 12:53] LABS: HEMATOCRIT 31.4 % (36.0-46.0); MCV 92.1 FL (83-99)
[2016-11-18 14:51] LABS: POINT-OF-CARE METER ID UU13113819
[2016-11-18 16:14] VITALS: BP 141/63
[2016-11-18 19:58] VITALS: BP 153/70
[2016-11-18 21:27] LABS: POINT-OF-CARE METER ID UU13113725
[2016-11-19] VITALS (9 sets, daily range): BP systolic 121–163; BP diastolic 58–82
[2016-11-19 06:36] LABS: ANION GAP 11 MEQ/L (2-14); CHLORIDE 111 MEQ/L (99-109); GFR ESTIMATE (CALCULATED) 31 mL/min/; GLUCOSE 123 mg/dL (70-99); POTASSIUM 3.4 MEQ/L (3.7-5.4); SAMPLE HEMOLYSIS CHECK 0; SAMPLE ICTERIC CHECK 0; SAMPLE LIPEMIA CHECK 0; SODIUM 143 MEQ/L (136-147); UREA NITROGEN (BUN) 33 mg/dL (9-23)
[2016-11-19 06:41] LABS: POINT-OF-CARE METER ID UU13113725
[2016-11-19 11:57] LABS: POINT-OF-CARE METER ID UU13113725
[2016-11-19 14:19] LABS: HEMATOCRIT 24.4 % (36.0-46.0); MCH 30.9 PG (29.0-34.0); MCHC 32.8 G/DL (30.0-36.0); MCV 94.2 FL (83-99); MEAN PLAT.VOLUME 10.5 uM^3 (9.5-12.4); NRBC (%) 0.2 /100 WBC (0-0); PLATELET COUNT 259 K/uL (156-360); RBC DIS.WIDTH-CV 17.7 % (11.8-14.6); RED BLOOD COUNT 2.59 M/uL (3.80-5.20); WHITE BLOOD COUNT 11.4 K/uL (4.1-10.2)
[2016-11-19 22:05] LABS: POINT-OF-CARE METER ID UU13113725
[2016-11-20 03:39] VITALS: BP 130/59
[2016-11-20 06:11] LABS: HEMATOCRIT 25.5 % (36.0-46.0); MCH 30.7 PG (29.0-34.0); MCHC 32.5 G/DL (30.0-36.0); MCV 94.4 FL (83-99); MEAN PLAT.VOLUME 9.9 uM^3 (9.5-12.4); PLATELET COUNT 313 K/uL (156-360); RBC DIS.WIDTH-CV 18.2 % (11.8-14.6); RBC DIS.WIDTH-SD 56.3 % (39-53); WHITE BLOOD COUNT 12.5 K/uL (4.1-10.2)
[2016-11-20 06:36] LABS: ANION GAP 8 MEQ/L (2-14); CHLORIDE 112 MEQ/L (99-109); GFR ESTIMATE (CALCULATED) 29 mL/min/; GLUCOSE 147 mg/dL (70-99); POTASSIUM 3.5 MEQ/L (3.7-5.4); SAMPLE HEMOLYSIS CHECK 0; SAMPLE ICTERIC CHECK 0; SAMPLE LIPEMIA CHECK 0; SODIUM 146 MEQ/L (136-147); UREA NITROGEN (BUN) 26 mg/dL (9-23)
[2016-11-20 10:22] VITALS: BP 144/65
[2016-11-20 12:34] VITALS: BP 137/80
[2016-11-20 15:55] VITALS: BP 145/67
[2016-11-21] VITALS (13 sets, daily range): BP systolic 130–179; BP diastolic 57–86
[2016-11-21 06:18] LABS: HEMATOCRIT 24.4 % (36.0-46.0); MCH 31.9 PG (29.0-34.0); MCHC 33.2 G/DL (30.0-36.0); MCV 96.1 FL (83-99); MEAN PLAT.VOLUME 10.2 uM^3 (9.5-12.4); PLATELET COUNT 282 K/uL (156-360); RBC DIS.WIDTH-SD 59.3 % (39-53); RED BLOOD COUNT 2.54 M/uL (3.80-5.20); WHITE BLOOD COUNT 11.9 K/uL (4.1-10.2)
[2016-11-21 07:01] LABS: POINT-OF-CARE METER ID UU13113725
[2016-11-21 11:45] LABS: POINT-OF-CARE METER ID UU13113725
[2016-11-21 16:15] LABS: POINT-OF-CARE METER ID UU13113725
[2016-11-21 21:52] LABS: POINT-OF-CARE METER ID UU13113725
[2016-11-22 00:43] VITALS: BP 152/78
[2016-11-22 01:07] VITALS: BP 152/70
[2016-11-22 06:25] LABS: POINT-OF-CARE METER ID UU13113725
[2016-11-22 07:23] VITALS: BP 119/58; BP 190/80
[2016-11-22 08:11] LABS: ANION GAP 13 MEQ/L (2-14); CHLORIDE 108 MEQ/L (99-109); POTASSIUM 3.8 MEQ/L (3.7-5.4); SAMPLE HEMOLYSIS CHECK 0; SAMPLE ICTERIC CHECK 0; SAMPLE LIPEMIA CHECK 0; SODIUM 143 MEQ/L (136-147)
[2016-11-22 08:17] LABS: GFR ESTIMATE (CALCULATED) 33 mL/min/; GLUCOSE 161 mg/dL (70-99); UREA NITROGEN (BUN) 18 mg/dL (9-23)
[2016-11-22 10:32] LABS: HEMATOCRIT 37.1 % (36.0-46.0); MCH 30.4 PG (29.0-34.0); MCHC 33.2 G/DL (30.0-36.0); MEAN PLAT.VOLUME 9.7 uM^3 (9.5-12.4); PLATELET COUNT 326 K/uL (156-360); RBC DIS.WIDTH-CV 18.5 % (11.8-14.6); WHITE BLOOD COUNT 16.6 K/uL (4.1-10.2)
[2016-11-22 10:35] LABS: MCV 91.8 FL (83-99); RED BLOOD COUNT 4.04 M/uL (3.80-5.20)
[2016-11-22 15:34] LABS: ADD MIUA? YES; BILIRUBIN NEGATIVE; BLOOD MODERATE; COLOR YELLOW ((YELLOW)); GLUCOSE (STRIP) 50; KETONES NEGATIVE; LEUKOCYTES LARGE; NITRITE NEGATIVE; PROTEIN (STRIP) NEGATIVE; SPECIFIC GRAVITY 1.009 (1.000-1.030); UROBILINOGEN 0.2 MG/DL (0.2-1.0)
[2016-11-22 15:37] VITALS: BP 136/58
[2016-11-22 15:41] LABS: BACTERIA NONE SEEN /HPF; EPITHELIAL CELLS RARE /HPF; MUCUS TRACE /LPF; WHITE BLOOD CELLS TNTC /HPF (0-5)
[2016-11-22 21:04] VITALS: BP 135/64
[2016-11-22 23:44] VITALS: BP 101/68
[2016-11-23 08:04] VITALS: BP 125/60
[2016-11-23 08:37] LABS: HEMATOCRIT 36.1 % (36.0-46.0); MCH 31.4 PG (29.0-34.0); MCHC 33.8 G/DL (30.0-36.0); MEAN PLAT.VOLUME 9.9 uM^3 (9.5-12.4); PLATELET COUNT 329 K/uL (156-360); RBC DIS.WIDTH-CV 18.1 % (11.8-14.6); RBC DIS.WIDTH-SD 56.6 % (39-53); RED BLOOD COUNT 3.88 M/uL (3.80-5.20); WHITE BLOOD COUNT 18.5 K/uL (4.1-10.2)
[2016-11-23 08:58] LABS: ANION GAP 10 MEQ/L (2-14); CHLORIDE 102 MEQ/L (99-109); GFR ESTIMATE (CALCULATED) 29 mL/min/; GLUCOSE 180 mg/dL (70-99); POTASSIUM 3.4 MEQ/L (3.7-5.4); SAMPLE HEMOLYSIS CHECK 0; SAMPLE ICTERIC CHECK 0; SAMPLE LIPEMIA CHECK 0; SODIUM 139 MEQ/L (136-147); UREA NITROGEN (BUN) 20 mg/dL (9-23)
[2016-11-23 11:15] LABS: POINT-OF-CARE METER ID UU13113725
[2016-11-24 06:42] LABS: HEMATOCRIT 34.7 % (36.0-46.0); MCH 31.5 PG (29.0-34.0); MCHC 33.7 G/DL (30.0-36.0); MCV 93.5 FL (83-99); PLATELET COUNT 348 K/uL (156-360); RBC DIS.WIDTH-CV 17.9 % (11.8-14.6); RBC DIS.WIDTH-SD 61.4 % (39-53); RED BLOOD COUNT 3.71 M/uL (3.80-5.20); WHITE BLOOD COUNT 18.5 K/uL (4.1-10.2)
[2016-11-24 07:11] LABS: ANION GAP 11 MEQ/L (2-14); CHLORIDE 102 MEQ/L (99-109); GFR ESTIMATE (CALCULATED) 31 mL/min/; GLUCOSE 141 mg/dL (70-99); POTASSIUM 3.9 MEQ/L (3.7-5.4); SAMPLE HEMOLYSIS CHECK 0; SAMPLE ICTERIC CHECK 0; SAMPLE LIPEMIA CHECK 0; SODIUM 137 MEQ/L (136-147); UREA NITROGEN (BUN) 20 mg/dL (9-23)
[2016-11-24 07:19] VITALS: BP 126/61
[2016-11-24 16:00] VITALS: BP 117/57
[2016-11-24 23:15] VITALS: BP 127/68
[2016-11-25 06:08] LABS: POINT-OF-CARE METER ID UU13113725
[2016-11-25 06:08] LABS: HEMATOCRIT 33.7 % (36.0-46.0); MCH 31.7 PG (29.0-34.0); MCHC 34.1 G/DL (30.0-36.0); MCV 92.8 FL (83-99); PLATELET COUNT 352 K/uL (156-360); RBC DIS.WIDTH-CV 17.2 % (11.8-14.6); RBC DIS.WIDTH-SD 58.7 % (39-53); RED BLOOD COUNT 3.63 M/uL (3.80-5.20); WHITE BLOOD COUNT 14.3 K/uL (4.1-10.2)
[2016-11-25 06:34] LABS: ANION GAP 12 MEQ/L (2-14); CHLORIDE 98 MEQ/L (99-109); GFR ESTIMATE (CALCULATED) 27 mL/min/; GLUCOSE 131 mg/dL (70-99); POTASSIUM 3.7 MEQ/L (3.7-5.4); SAMPLE HEMOLYSIS CHECK 0; SAMPLE ICTERIC CHECK 0; SAMPLE LIPEMIA CHECK 0; SODIUM 134 MEQ/L (136-147); UREA NITROGEN (BUN) 25 mg/dL (9-23)
[2016-11-25 07:17] VITALS: BP 143/65
[2016-11-25 15:48] VITALS: BP 129/60
[2016-11-26 00:01] VITALS: BP 130/78
[2016-11-26 06:10] LABS: EOSINOPHIL (%) 1.5 % (0-5); EOSINOPHIL COUNT 0.2 K/uL (0-0.3); HEMATOCRIT 31.1 % (36.0-46.0); IMMATURE GRANULOCYTE (%) 0.7 % (0.0-0.7); IMMATURE GRANULOCYTE COUNT 0.1 K/uL; INSTRUMENT ABS NEUTROPHIL CT 8.9 K/uL; LYMPHOCYTE COUNT 1.2 K/uL (1.0-2.8); MCH 32.3 PG (29.0-34.0); MCHC 34.7 G/DL (30.0-36.0); MCV 93.1 FL (83-99); MEAN PLAT.VOLUME 9.9 uM^3 (9.5-12.4); MONOCYTE (%) 10.1 % (3-12); MONOCYTE COUNT 1.2 K/uL (0-0.8); NEUTROPHIL (%) 76.8 % (45-76); NEUTROPHIL COUNT 8.9 K/uL (1.8-6.4); PLATELET COUNT 332 K/uL (156-360); RBC DIS.WIDTH-CV 16.8 % (11.8-14.6); RBC DIS.WIDTH-SD 57.1 % (39-53); RED BLOOD COUNT 3.34 M/uL (3.80-5.20); WHITE BLOOD COUNT 11.5 K/uL (4.1-10.2)
[2016-11-26 06:16] LABS: POINT-OF-CARE METER ID UU13113725
[2016-11-26 06:46] LABS: ANION GAP 11 MEQ/L (2-14); CHLORIDE 98 MEQ/L (99-109); GFR ESTIMATE (CALCULATED) 26 mL/min/; GLUCOSE 158 mg/dL (70-99); POTASSIUM 3.9 MEQ/L (3.7-5.4); SAMPLE HEMOLYSIS CHECK 0; SAMPLE ICTERIC CHECK 0; SAMPLE LIPEMIA CHECK 0; SODIUM 133 MEQ/L (136-147); UREA NITROGEN (BUN) 29 mg/dL (9-23)
[2016-11-26 07:42] VITALS: BP 143/63
[2016-11-26 12:13] LABS: POINT-OF-CARE METER ID UU13113725
[2016-11-26 16:05] VITALS: BP 132/61
[2016-11-26 16:15] LABS: POINT-OF-CARE METER ID UU13113725
[2016-11-26 23:22] VITALS: BP 113/59
[2016-11-27 05:46] LABS: POINT-OF-CARE METER ID UU13113725
[2016-11-27 07:37] VITALS: BP 132/63
[2016-11-27 09:20] LABS: BASOPHIL COUNT 0.1 K/uL (0-0.1); EOSINOPHIL (%) 1.5 % (0-5); EOSINOPHIL COUNT 0.2 K/uL (0-0.3); HEMATOCRIT 32.1 % (36.0-46.0); IMMATURE GRANULOCYTE (%) 0.7 % (0.0-0.7); IMMATURE GRANULOCYTE COUNT 0.1 K/uL; INSTRUMENT ABS NEUTROPHIL CT 7.5 K/uL; LYMPHOCYTE COUNT 0.7 K/uL (1.0-2.8); MCH 30.6 PG (29.0-34.0); MCV 92.8 FL (83-99); MONOCYTE (%) 12.9 % (3-12); MONOCYTE COUNT 1.3 K/uL (0-0.8); NEUTROPHIL (%) 76.8 % (45-76); NEUTROPHIL COUNT 7.5 K/uL (1.8-6.4); RBC DIS.WIDTH-CV 16.8 % (11.8-14.6); RBC DIS.WIDTH-SD 56.5 % (39-53); RED BLOOD COUNT 3.46 M/uL (3.80-5.20); WHITE BLOOD COUNT 9.7 K/uL (4.1-10.2)
[2016-11-27 10:19] LABS: MEAN PLAT.VOLUME 9.5 uM^3 (9.5-12.4); PLATELET COUNT 311 K/uL (156-360)
[2016-11-27] MEDS ORDERED: OXAYDO5 MG PO (15:21)
[2016-11-27] MEDS ORDERED: TYLENOL ARTHRI650 MG PO (15:21)
[2016-11-27] MEDS ORDERED: PANTOPRAZOLE SO40 MG PO (15:21)
[2016-11-27] MEDS ORDERED: OMNICEF300 MG PO ×2 (15:24→15:32)
[2016-11-27 16:16] VITALS: BP 136/61
== END 2016-11-27 18:45 | DRG 377 ==
LOC: EME 06:18 → EDOF 09:41 → 5EAST 09:41 → ENRESERV 09:43 → 5EAST 11:34
PROVIDERS: Emergency Medicine; Hospitalist; Internal Medicine; Internal Medicine Gastroenterology; Student in an Organized Health Care Education/Training Program
PROC: 30233N1 Transfusion of Nonautologous Red Blood Cells into Peripheral Vein, Percutaneous Approach (ICD-10-PCS; 2016-11-17)
PROC: 0DB58ZX Excision of Esophagus, Via Natural or Artificial Opening Endoscopic, Diagnostic (ICD-10-PCS; principal; 2016-11-18)
DX: K92.2 Gastrointestinal hemorrhage, unspecified (principal); N39.0 Urinary tract infection, site not specified; E11.22 Type 2 diabetes mellitus with diabetic chronic kidney disease; I12.9 Hypertensive chronic kidney disease with stage 1 through stage 4 chronic kidney disease, or unspecified chronic kidney disease; K62.3 Rectal prolapse; N18.9 Chronic kidney disease, unspecified; I25.10 Atherosclerotic heart disease of native coronary artery without angina pectoris; I27.2 Other secondary pulmonary hypertension; N17.9 Acute kidney failure, unspecified; D62 Acute posthemorrhagic anemia; E78.5 Hyperlipidemia, unspecified; E86.0 Dehydration; E87.6 Hypokalemia; F41.9 Anxiety disorder, unspecified; I25.2 Old myocardial infarction; K21.0 Gastro-esophageal reflux disease with esophagitis; R33.9 Retention of urine, unspecified; K22.10 Ulcer of esophagus without bleeding; R13.10 Dysphagia, unspecified; G89.29 Other chronic pain; M54.5 Low back pain; K59.00 Constipation, unspecified; J69.0 Pneumonitis due to inhalation of food and vomit
CPT/HCPCS: 71010; 80048; 80053; 80069; 81003; 82040; 82948; 85014; 85018; 85025; 85027; 85610; 85730; 86870; 86900; 86901; 86905; 86920; 87040; 87086; 87106; 88305; 88312; 93005; 93306; 93971; 94760; 94799; 97530 GP; 99281; 99285; C1753; C9113; J0360; J0456; J0696; J1756; J1815; J1940; J2270; J2405; J2765; J3010; J7030; J7050; P9016; P9047

== ENCOUNTER 2016-11-30 09:43 | Emergency (ER) | payer OTHER, MEDICARE ==
[~2016-11-30] VITALS: Ht 157.5 cm; Wt 72.1 kg
[~2016-11-30 09:43] MED LIST changes: +DULCOLAX10 MG PR; +METRONIDAZOLE500 MG PO; +OMEPRAZOLE20 MG PO; +OMNICEF300 MG PO; +ONDANSETRON HCL4 MG PO; +OXAYDO5 MG PO
[2016-11-30 10:56] LABS: HEMATOCRIT 31.2 % (36.0-46.0); MCH 30.7 PG (29.0-34.0); MCV 92.9 FL (83-99); MEAN PLAT.VOLUME 9.5 uM^3 (9.5-12.4); PLATELET COUNT 348 K/uL (156-360); RBC DIS.WIDTH-CV 15.9 % (11.8-14.6); RBC DIS.WIDTH-SD 53.1 % (39-53); RED BLOOD COUNT 3.36 M/uL (3.80-5.20); WHITE BLOOD COUNT 12.5 K/uL (4.1-10.2)
[2016-11-30 11:12] LABS: CHLORIDE 100 mEq/L (99-109); POTASSIUM 3.3 mEq/L (3.7-5.4); SODIUM 137 mEq/L (136-147)
[2016-11-30 11:14] LABS: GLUCOSE 175 mg/dL (70-99)
[2016-11-30 11:15] LABS: ANION GAP 10 MEQ/L (2-14)
[2016-11-30 11:17] LABS: GFR ESTIMATE (CALCULATED) 36 mL/min/
[2016-11-30 11:18] LABS: UREA NITROGEN (BUN) 21 mg/dL (9-23)
[2016-11-30 11:20] LABS: TROP-I INTERPRETATION NEGATIVE; TROPONIN-I 0.05 ng/mL (0.0-0.30)
[2016-11-30 13:18] LABS: TROP-I INTERPRETATION NEGATIVE; TROPONIN-I 0.03 ng/mL (0.0-0.30)
[2016-11-30 14:09] VITALS: BP 147/64
== END 2016-11-30 14:12 ==
LOC: EME 09:43
PROVIDERS: Emergency Medicine
DX: R07.9 Chest pain, unspecified (principal); F41.9 Anxiety disorder, unspecified; E11.9 Type 2 diabetes mellitus without complications; E78.5 Hyperlipidemia, unspecified; I10 Essential (primary) hypertension; I25.2 Old myocardial infarction; K21.9 Gastro-esophageal reflux disease without esophagitis; Z98.61 Coronary angioplasty status; Z79.4 Long term (current) use of insulin; Z79.82 Long term (current) use of aspirin
CPT/HCPCS: 71010; 80048; 84484; 85027; 87086; 87106; 93005; 99281; 99284

== ENCOUNTER → 2016-12-26 | Outpatient (CLI) | payer OTHER, MEDICARE ==
[~2016-12-26] VITALS: Ht 149.9 cm; Wt 59.9 kg
[~2016-12-26] MED LIST changes: +LASIX20 MG PO; +MILK OF MAGN PO; +OXYCODONE HCL5 MG PO; +POTASSIUM CHLO20 ME2 PO; +PROMETHAZINE12.5 M1 PO
[2016-12-26 11:35] LABS: POINT-OF-CARE METER ID UU14107333
== END | disposition home or self-care (01) ==
LOC: AMB 10:55
PROVIDERS: Internal Medicine
PROC: 0DBN8ZX Excision of Sigmoid Colon, Via Natural or Artificial Opening Endoscopic, Diagnostic (ICD-10-PCS; principal; 2016-12-26)
DX: D12.5 Benign neoplasm of sigmoid colon (principal); K62.3 Rectal prolapse; K59.09 Other constipation; K22.10 Ulcer of esophagus without bleeding; E11.65 Type 2 diabetes mellitus with hyperglycemia; I10 Essential (primary) hypertension; Z85.42 Personal history of malignant neoplasm of other parts of uterus; Z85.3 Personal history of malignant neoplasm of breast; Z79.82 Long term (current) use of aspirin; Z90.710 Acquired absence of both cervix and uterus; Z88.0 Allergy status to penicillin; Z88.8 Allergy status to other drugs, medicaments and biological substances
CPT/HCPCS: 82948; 88305